=== PATIENT | male | born 1970 | race Two or more races ===

== ENCOUNTER 2021-01-24 17:55 | Emergency (ER) | payer OTHER ==
[2021-01-24 18:11] VITALS: BP 157/98; PULSE 68; TEMP 98.1; BMI 36.6
[2021-01-24] MEDS ORDERED: NAPROXEN 500 MG TABLET PO ONE (18:28)
[2021-01-24] MEDS ORDERED: NAPROXEN 500 MG TABLET ONE (18:48)
== END 2021-01-24 19:44 | disposition home or self-care (01) ==
LOC: JERFT 17:55
DX: M25.562 Pain in left knee (principal)
CPT/HCPCS: 73562-TC-LT-FY; 99283-25